=== PATIENT | female | born 1985 | race Caucasian/White ===

== ENCOUNTER 2022-10-15 13:19 | Emergency (ER) | payer SELFPAY ==
[~2022-10-15] VITALS: Ht 167.6 cm; Wt 91.0 kg
[2022-10-15 13:21] VITALS: BP 138/92
== END 2022-10-15 17:18 | disposition left against medical advice (07) ==
LOC: ER 13:19
DX: Z53.21 Procedure and treatment not carried out due to patient leaving prior to being seen by health care provider (principal)